=== PATIENT | female | born 1965 | race Caucasian/White ===

== ENCOUNTER 2018-09-13 14:57 | Observation (INO) | payer BC, OTHER ==
[2018-09-13 15:17] VITALS: BP 146/89; PULSE 89; TEMP 98.6; BMI 28.8
--- NOTE | 2018-09-13 15:52 | PDOC ---
History of Present Illness <Rosario Herndon - Last Filed: 09/13/18 19:26> - History of Present Illness Initial Comments: 53yo F with PMH of HTN, HLD, pre-DM, cardiac catheterization ~2010, thyroid disorder, "partial hysterectomy," recently diagnosed Purnima's syndrome presenting with pre-syncope and chest pain. Patient states she started a new medicine called Melody on Friday and has not been feeling well since Friday. She measures her blood pressure and glucose at home and noted some low levels. Yesterday, she felt sweaty, dizzy, nauseous, and like she was going to pass out and called EMS. She thought she was hypoglycemic so ate a caramel. EMS came and noted that she had a BP with systolic in the 140s and a normal blood glucose level. Patient decided not to come to the ED. Today, she had the same symptoms and decided to come to the ED. Patient does currently endorse chest pain described as a "pressure." It is nonradiating. It is palpable, but not pleuritic. Patient endorses worsening pain with exertion. She has not taken anything at home for it. She called her stenciling machine tender, Dr. Rivas, about her symptoms and was instructed to come to check her potassium levels. No hemoptysis, no recent surgical history, no recent immobilization, no hormone use , no history of DVT or PE. Follows with Dr. Florez for cardiology. Patient reports recent holter monitoring for 33 days at the end of 2018 which only elicited a "benign arrhythmia." She has had stress tests in the past, most recently about 1-2 years ago which was "normal." Denies recent travel or sick contacts. <Stefany Hooevr - Last Filed: 09/13/18 20:35> - General Chief Complaint: Lightheaded Stated Complaint: DIZZNESS, PAPALTION Time Seen by Provider: 09/13/18 15:49 Past History <Rosario Herndon - Last Filed: 09/13/18 19:26> - Past Medical History COPD: No Diabetes: Yes HTN: Yes Hypercholesterolemia: Yes - Suicide/Smoking/Psychosocial Hx Smoking History: Never smoked Hx Alcohol Use: No Drug/Substance Use Hx: No Substance Use Type: None <Stefany Hoover - Last Filed: 09/13/18 20:35> - Past Medical History Allergies/Adverse Reactions: Allergies Allergy/AdvReac Type Severity Reaction Status Date / Time linaclotide [From Linzess] AdvReac Mild Unverified 09/13/18 15:17 lubiprostone [From Amitiza] AdvReac Mild Unverified 09/13/18 15:17 Home Medications: Ambulatory Orders Amoxicillin/Potassium Clav [Augmentin 500-125 Tablet] 1 each PO BID #14 tablet 04/13/16 Review of Systems - Review of Systems Comments:: Constitutional: no fever, no chills HEENT: no throat pain, no dysphagia Cardiovascular: +chest pain, +palpitations Respiratory: no cough, +shortness of breath Gastrointestinal: +abdominal pain, +nausea Genitourinary: no dysuria, no frequency Musculoskeletal: no myalgia, no arthralgia Skin: no rash, no itching Neurologic: +headache, +weakness <So,Stefany - Last Filed: 09/13/18 20:35> *Physical Exam - Vital Signs Last Vital Signs Temp Pulse Resp BP Pulse Ox 98.6 F 89 18 146/89 99 09/13/18 15:13 09/13/18 15:13 09/13/18 15:13 09/13/18 15:13 09/13/18 15:13 <Rosario Herndon - Last Filed: 09/13/18 19:26> - Vital Signs Last Vital Signs Temp Pulse Resp BP Pulse Ox 98.6 F 89 18 146/89 99 09/13/18 15:13 09/13/18 15:13 09/13/18 15:13 09/13/18 15:13 09/13/18 15:13 - Physical Exam Comments: General: Awake, alert, and fully oriented, in no acute distress Head: No signs of trauma, bansal facies Eyes: EOMI, sclera anicteric ENT: Moist mucus membranes Neck: Normal ROM, supple, enlarged thyroid Lungs: Lungs clear, Normal breath sounds Cardio: Regular rate and rhythm, S1 and S2 present, chest wall tender to palpation Abdomen: Tender to palpation in epigastrium, Soft, nondistended. No guarding, no rebound, no masses Extremities: Normal range of motion, Distal pulses present SKIN: Warm, Dry, normal turgor Neurologic: Cranial nerves II through XII grossly intact. Normal speech <So,Stefany - Last Filed: 09/13/18 20:35> Moderate Sedation - Procedure Monitoring Vital Signs: Procedure Monitoring Vital Signs Temperature 98.6 F 09/13/18 15:13 Pulse Rate 89 09/13/18 15:13 Respiratory Rate 18 09/13/18 15:13 Blood Pressure 146/89 09/13/18 15:13 O2 Sat by Pulse Oximetry (%) 99 09/13/18 15:13 <KatrinaRosario - Last Filed: 09/13/18 19:26> - Procedure Monitoring Vital Signs: Procedure Monitoring Vital Signs Temperature 98.6 F 09/13/18 15:13 Pulse Rate 89 09/13/18 15:13 Respiratory Rate 18 09/13/18 15:13 Blood Pressure 146/89 09/13/18 15:13 O2 Sat by Pulse Oximetry (%) 99 09/13/18 15:13 <Anastacia HooverStefany - Last Filed: 09/13/18 20:35> ED Treatment Course - LABORATORY CBC & Chemistry Diagram: 09/13/18 17:11 09/13/18 17:11 - ADDITIONAL ORDERS Additional order review: Laboratory Results 09/13/18 09/13/18 09/13/18 17:11 17:11 17:11 PT with INR INR PTT (Actin FS) 27.1 Sodium Potassium Chloride Carbon Dioxide Anion Gap BUN Creatinine Creat Clearance w eGFR Random Glucose Calcium Phosphorus 3.6 Cancelled Magnesium Total Bilirubin AST ALT Alkaline Phosphatase Creatine Kinase Troponin I B-Natriuretic Peptide 33.8 Total Protein Albumin TSH 0.23 L 09/13/18 09/13/18 17:11 17:11 PT with INR 12.80 INR 1.08 PTT (Actin FS) Sodium 145 Potassium 3.7 Chloride 106 Carbon Dioxide 29 Anion Gap 10 BUN 10 Creatinine 0.7 Creat Clearance w eGFR > 60 Random Glucose 87 Calcium 9.5 Phosphorus Magnesium 2.2 Total Bilirubin 0.2 AST 18 ALT 30 Alkaline Phosphatase 130 H Creatine Kinase 116 Troponin I < 0.02 B-Natriuretic Peptide Total Protein 7.3 Albumin 4.2 TSH 09/13/18 17:11 RBC 4.62 MCV 89.7 MCHC 34.5 RDW 13.3 MPV 8.3 Neutrophils % 58.9 Lymphocytes % 29.7 D Monocytes % 9.7 Eosinophils % 1.0 Basophils % 0.7 - Medications Given in the ED: ED Medications Discontinued Medications Generic Name Dose Route Start Last Admin Trade Name Iraida PRN Reason Stop Dose Admin Acetaminophen 1,000 mg 09/13/18 16:27 09/13/18 17:30 Ofirmev Injection - IVPB 09/13/18 16:28 1,000 mg ONCE ONE Administration Famotidine/Sodium Chloride 20 mg in 50 mls @ 100 mls/hr 09/13/18 16:37 17:30 Pepcid 20 Mg Premixed Ivpb - IVPB 09/13/18 17:06 100 mls/hr ONCE ONE Administration <Rosario Herndon - Last Filed: 09/13/18 19:26> - LABORATORY CBC & Chemistry Diagram: 09/13/18 17:11 09/13/18 17:11 <Stefany Hoover - Last Filed: 09/13/18 20:35> Medical Decision Making - Medical Decision Making 53yo F with PMH of HTN, HLD, pre-DM, cardiac catheterization ~2010, thyroid disorder, "partial hysterectomy," recently diagnosed Accord's syndrome presenting with pre-syncope and chest pain. DDX including but not limited to ACS, PNA, PE, arrhythmia, electrolyte abnormality, orthostatic hypotension, GERD Cardiac and pre-syncope workup 1g Ofirmev for headache and Famotidine for epigastric pain Patient likely to be admitted for chest pain 09/13/18 16:[address] Tracy who accepted patient for admission under Dr. Mcnally 09/13/18 18:14 Dr. Herndon evaluated patient and decision was made to discharge patient as her symptoms are consistent with Korlym which she started taking recently. Patient will follow-up with Dr. Rivas. 09/13/18 20:34 <Stefany Hoover - Last Filed: 09/13/18 20:35> *DC/Admit/Observation/Transfer - Discharge Dispostion Decision to Admit order: No <Rosario Herndon - Last Filed: 09/13/18 19:26> - Discharge Dispostion Decision to Admit order: Yes <Stefany Hoover - Last Filed: 09/13/18 20:35> Diagnosis at time of Disposition: Chest pain, Hypothyroid, Side effect of medication - Discharge Dispostion Disposition: HOME Condition at time of disposition: Improved
[2018-09-13] MEDS ORDERED: ACETAMINOPHEN 1000 MG/100 ML VIAL (NON FORMULARY) IVPB ONE (16:27)
[2018-09-13] MEDS ORDERED: FAMOTIDINE 20 MG/50 ML IVPB 20 MG/50 ML MG IVPB ONE ×2 (16:37→17:02)
--- NOTE | 2018-09-13 16:58 | PDOC ---
Attending Attestation - HPI HPI: 09/13/18 16:59 The patient is a 53 year old female with a PMH of HTN, HLD, pre-diabetes, thyroid disorder, and recently diagnosed Purnima's syndrome presents to the ER with near-syncopal episode and chest pain today. Patient was recently started on Korylm and has noticed some tingling in her upper extremities since. Patient also notes dizziness, lightheadedness, diaphoresis and nausea since yesterday. Patient is complaining of chest pressure, dyspnea on exertion, and lightheadedness today prompting her to come to the ER for further evaluation. Allergies: linaclotide, lubiprostone Surgeries: None reported Social Hx: No reported alcohol, drug or cigarette use. PCP: Dr. Rivas - Physicial Exam PE: 09/13/18 17:07 ADULT EXAM GENERAL: Awake, alert, and fully oriented, in no acute distress (+) obese. LUNGS: Breath sounds equal, clear to auscultation bilaterally. No wheezes, and no crackles HEART: Regular rate and rhythm, normal S1 and S2, no murmurs, rubs or gallops ABDOMEN: Soft, normoactive bowel sounds. No guarding, no rebound. No masses. ( +) Left upper quadrant tenderness. EXTREMITIES: Normal range of motion, no edema. No clubbing or cyanosis. No cords, erythema, or tenderness NEUROLOGICAL: Cranial nerves II through XII grossly intact. Normal speech, normal gait SKIN: Warm, Dry, normal turgor, no rashes or lesions noted. <Estee Bee - Last Filed: 09/13/18 18:04> - Resident Resident Name: Stefany Hoover - ED Attending Attestation I have performed the following: I have examined & evaluated the patient, The case was reviewed & discussed with the resident, I agree w/resident's findings & plan, Exceptions are as noted - Medical Decision Making 09/13/18 16:57 A portion of this note was documented by scribe services under my direction. I have reviewed the details of the note, within reason, and agree with the documentation with the following case summary and management plan written by me. Patient treated in the ED. Nursing notes are reviewed and incorporated into the medical decision-making. Vital signs reviewed. Peripheral IV access obtained by the nurse, laboratory studies are drawn and sent, reviewed and interpreted by myself. Vital Signs Temp Pulse Resp BP Pulse Ox 98.6 F 89 18 146/89 99 09/13/18 15:13 09/13/18 15:13 09/13/18 15:13 09/13/18 15:13 09/13/18 15:13 53-year-old female with history of hypertension, hyperlipidemia, prediabetes, thyroid disorder, recently diagnosed Ashby syndrome presents with near- syncope and chest pain. The patient was initiated new medication several days ago called Melody for Ashby syndrome. Since then, the patient has been endorsing feeling generally unwell and noted yesterday that she felt very dizzy and lightheaded and diaphoretic and nauseous. The patient did not syncopized but had called EMS. At that time, patient's glucose was around 140 the patient opted not to go to the ER. Since then, the patient never felt to baseline and today, she felt similar symptoms as well as chest pressure with dyspnea on exertion and lightheadedness. The patient's symptoms may be related to her Purnima syndrome or medication. However, must also consider cardiac etiology for near-syncope and chest pain. The patient should have a troponin, chest x-ray and labs. Ultimately, the patient should be admitted to the hospital for further management. It is also possible patient may potentially of gastritis given her left upper quadrant pain but that is a diagnosis of exclusion. 09/13/18 18:02 CBC, BMP 09/13/18 17:11 09/13/18 17:11 CMP Sodium 145 mmol/L (136-145) 09/13/18 17:11 Potassium 3.7 mmol/L (3.5-5.1) 09/13/18 17:11 Chloride 106 mmol/L (98-107) 09/13/18 17:11 Carbon Dioxide 29 mmol/L (21-32) 09/13/18 17:11 Anion Gap 10 MMOL/L (8-16) 09/13/18 17:11 BUN 10 mg/dL (7-18) 09/13/18 17:11 Creatinine 0.7 mg/dL (0.55-1.3) 09/13/18 17:11 Creat Clearance w eGFR > 60 (>60) 09/13/18 17:11 Random Glucose 87 mg/dL (74-106) 09/13/18 17:11 Calcium 9.5 mg/dL (8.5-10.1) 09/13/18 17:11 Phosphorus 3.6 mg/dL (2.5-4.9) 09/13/18 17:11 Magnesium 2.2 mg/dL (1.8-2.4) 09/13/18 17:11 Total Bilirubin 0.2 mg/dL (0.2-1) 09/13/18 17:11 AST 18 U/L (15-37) 09/13/18 17:11 ALT 30 U/L (13-61) 09/13/18 17:11 Alkaline Phosphatase 130 U/L (45-117) H 09/13/18 17:11 Creatine Kinase 116 U/L (26-192) 09/13/18 17:11 Troponin I < 0.02 ng/ml (0.00-0.05) 09/13/18 17:11 B-Natriuretic Peptide 33.8 pg/ml (5-125) 09/13/18 17:11 Total Protein 7.3 g/dl (6.4-8.2) 09/13/18 17:11 Albumin 4.2 g/dl (3.4-5.0) 09/13/18 17:11 TSH 0.23 uIU/ml (0.358-3.74) L 09/13/18 17:11 09/13/18 18:[address] Florez as her contour sander. Will place consultation in. Admit. <Eric Sosa - Last Filed: 09/13/18 18:13> Heart Score/ECG Review #1 ECG reviewed & interpreted by me at: 15:05 09/13/18 18:02 NSR 71, no std/herb, LVH, normal axis, normal intervals, QTC 404 msec <Eric Sosa - Last Filed: 09/13/18 18:13>
[2018-09-13] MEDS ORDERED: ACETAMINOPHEN INJECTION 100 ML IVPB ONE (17:02)
[2018-09-13 17:18] LABS: BASO % 0.7 % (0-2.0); HEMATOCRIT 41.5 % (32.4-45.2); HEMOGLOBIN 14.3 GM/dL (10.7-15.3); LYMPH % 29.7 % (8-40); MCH 30.9 pg (25.7-33.7); MCHC 34.5 g/dl (32.0-36.0); MEAN CELL VOLUME 89.7 fl (80-96); MEAN PLT VOLUME 8.3 fl (7.5-11.1); MONO % 9.7 % (3.8-10.2); NEUT % 58.9 % (42.8-82.8); PLATELET COUNT 334 K/MM3 (134-434); RBC 4.62 M/mm3 (3.60-5.2); RDW 13.3 % (11.6-15.6); WHITE BLOOD COUNT 9.6 K/mm3 (4.0-10.0)
[2018-09-13 17:34] LABS: INR 1.08 (0.83-1.09); PROTHROMBIN TIME (PATIENT) 12.8 SEC (9.7-13.0)
[2018-09-13 17:56] LABS: ALBUMIN 4.2 g/dl (3.4-5.0); ALK PHOS 130 U/L (45-117); ANION GAP 10 MMOL/L (8-16); BILIRUBIN,TOTAL 0.2 mg/dL (0.2-1); BLOOD UREA NITROGEN 10 mg/dL (7-18); CALCIUM 9.5 mg/dL (8.5-10.1); CHLORIDE 106 mmol/L (98-107); CO2 29 mmol/L (21-32); CREATININE 0.7 mg/dL (0.55-1.3); GLUCOSE,RANDOM 87 mg/dL (74-106); MAGNESIUM 2.2 mg/dL (1.8-2.4); POTASSIUM 3.7 mmol/L (3.5-5.1); SGOT/AST 18 U/L (15-37); SGPT/ALT 30 U/L (13-61); SODIUM 145 mmol/L (136-145); TOT PROT 7.3 g/dl (6.4-8.2)
[2018-09-13 18:00] LABS: N-TERMINAL BNP 33.8 pg/ml (5-125); PHOSPHOROUS 3.6 mg/dL (2.5-4.9)
[2018-09-13] MEDS ORDERED: POTASSIUM CHLORIDE TABS 20 MEQ TABLET.ER (FP) PO ONE ×2 (19:26→19:39)
--- NOTE | 2018-09-13 19:33 | PDOC ---
*Physical Exam - Vital Signs Last Vital Signs Temp Pulse Resp BP Pulse Ox 98.6 F 89 18 146/89 99 09/13/18 15:13 09/13/18 15:13 09/13/18 15:13 09/13/18 15:13 09/13/18 15:13 ED Treatment Course - LABORATORY CBC & Chemistry Diagram: 09/13/18 17:11 09/13/18 17:11 - ADDITIONAL ORDERS Additional order review: Laboratory Results 09/13/18 09/13/18 09/13/18 17:11 17:11 17:11 PT with INR INR PTT (Actin FS) 27.1 Sodium Potassium Chloride Carbon Dioxide Anion Gap BUN Creatinine Creat Clearance w eGFR Random Glucose Calcium Phosphorus 3.6 Cancelled Magnesium Total Bilirubin AST ALT Alkaline Phosphatase Creatine Kinase Troponin I B-Natriuretic Peptide 33.8 Total Protein Albumin TSH 0.23 L 09/13/18 09/13/18 17:11 17:11 PT with INR 12.80 INR 1.08 PTT (Actin FS) Sodium 145 Potassium 3.7 Chloride 106 Carbon Dioxide 29 Anion Gap 10 BUN 10 Creatinine 0.7 Creat Clearance w eGFR > 60 Random Glucose 87 Calcium 9.5 Phosphorus Magnesium 2.2 Total Bilirubin 0.2 AST 18 ALT 30 Alkaline Phosphatase 130 H Creatine Kinase 116 Troponin I < 0.02 B-Natriuretic Peptide Total Protein 7.3 Albumin 4.2 TSH 09/13/18 17:11 RBC 4.62 MCV 89.7 MCHC 34.5 RDW 13.3 MPV 8.3 Neutrophils % 58.9 Lymphocytes % 29.7 D Monocytes % 9.7 Eosinophils % 1.0 Basophils % 0.7 - Medications Given in the ED: ED Medications Discontinued Medications Generic Name Dose Route Start Last Admin Trade Name Iraida PRN Reason Stop Dose Admin Acetaminophen 1,000 mg 09/13/18 16:27 09/13/18 17:30 Ofirmev Injection - IVPB 09/13/18 16:28 1,000 mg ONCE ONE Administration Famotidine/Sodium Chloride 20 mg in 50 mls @ 100 mls/hr 09/13/18 16:37 17:30 Pepcid 20 Mg Premixed Ivpb - IVPB 09/13/18 17:06 100 mls/hr ONCE ONE Administration Medical Decision Making - Medical Decision Making 09/13/18 19:28 I received pt on signout. She states that she recenly began a new medication for kingston's; korlym (mifepristone) on Friday night. She began to feel ill Friday; on she had a dizzy spell at the eyeglass shop. EMS was called and all vitals were normal, so she didn't come to the ER. Friday she had some left arm tingling and she had crampy epigasric pain. Today she felt unwell also. Pt came today because her fitting room maintenance mechanic Dr. Rivas wanted her checked out, particularly her K+. Pt's K_ is WNL, slighly low. She will be given a dose of K+ orally here. Pt feels great now, and all labs are normal. Her TSH is low. I asked her to skip a dose of her synthroid tonight. Pt will be discharged home and she will follow with her PMD/fitting room maintenance mechanic, who recommended that she halve the dose of her korlym. Side effects of korlym are: Common side effects of Korlym include: nausea. stomach pain. fatigue. headache. joint pain. vomiting. swelling of the extremities. dizziness. *DC/Admit/Observation/Transfer Diagnosis at time of Disposition: Chest pain, Hypothyroid, Side effect of medication - Discharge Dispostion Disposition: HOME Condition at time of disposition: Improved - Referrals Referrals: Prince Gonzalez MD [Primary Care Provider] - - Patient Instructions - Post Discharge Activity
--- NOTE | 2018-09-13 19:57 | HP ---
CHIEF COMPLAINT: chest pain, near syncope PCP: [facility] HISTORY OF PRESENT ILLNESS: 53yo F presenting with pre-syncope and chest pain. Patient states she started a new medicine called Melody on Friday and has not been feeling well since Friday. Yesterday, she felt sweaty, dizzy, nauseous, and like she was going to pass out. ER course was notable for: (1) cxr (2) tylenol (3) Recent Travel: no PAST MEDICAL HISTORY: HTN, HLD, pre-DM, thyroid disorder, recently diagnosed [place]'s syndrome PAST SURGICAL HISTORY: partial hysterectomy, cardiac catheterization Social History: Smoking: Alcohol: Drugs: Family History: Allergies linaclotide [From Linzess] Adverse Reaction (Mild, Unverified 09/13/18 15:17) diarrhea lubiprostone [From Amitiza] Adverse Reaction (Mild, Unverified 09/13/18 15:17) cramps HOME MEDICATIONS: Home Medications Medication Instructions Recorded Amoxicillin/Potassium Clav 1 each PO BID #14 tablet 04/13/16 [Augmentin 500-125 Tablet] REVIEW OF SYSTEMS CONSTITUTIONAL: Absent: fever, chills, diaphoresis, generalized weakness, malaise, loss of appetite, weight change HEENT: Absent: rhinorrhea, nasal congestion, throat pain, throat swelling, difficulty swallowing, mouth swelling, ear pain, eye pain, visual changes CARDIOVASCULAR: Absent: chest pain, syncope, palpitations, irregular heart rate, peripheral edema present- lightheadedness RESPIRATORY: Absent: cough, shortness of breath, dyspnea with exertion, orthopnea, wheezing, stridor, hemoptysis GASTROINTESTINAL: Absent: abdominal pain, abdominal distension, vomiting, diarrhea, constipation, melena, hematochezia present- nausea GENITOURINARY: Absent: dysuria, frequency, urgency, hesitancy, hematuria, flank pain, genital pain MUSCULOSKELETAL: Absent: myalgia, arthralgia, joint swelling, back pain, neck pain SKIN: Absent: rash, itching, pallor HEMATOLOGIC/IMMUNOLOGIC: Absent: easy bleeding, easy bruising, lymphadenopathy, frequent infections ENDOCRINE: Absent: unexplained weight gain, unexplained weight loss, heat intolerance, cold intolerance NEUROLOGIC: Absent: headache, focal weakness or paresthesias, dizziness, unsteady gait, seizure, mental status changes, bladder or bowel incontinence PSYCHIATRIC: Absent: anxiety, depression, suicidal or homicidal ideation, hallucinations. PHYSICAL EXAMINATION Vital Signs - 24 hr 09/13/18 15:13 Temperature 98.6 F Pulse Rate 89 Respiratory 18 Rate Blood Pressure 146/89 O2 Sat by Pulse 99 Oximetry (%) GENERAL: Awake, alert, and fully oriented, in no acute distress. HEAD: Normal with no signs of trauma. EYES: Pupils equal, round and reactive to light, extraocular movements intact, sclera anicteric, conjunctiva clear. No lid lag. EARS, NOSE, THROAT: Ears normal, nares patent, oropharynx clear without exudates. Moist mucous membranes. NECK: Normal range of motion, supple without lymphadenopathy, JVD, or masses. LUNGS: Breath sounds equal, clear to auscultation bilaterally. No wheezes, and no crackles. No accessory muscle use. HEART: Regular rate and rhythm, normal S1 and S2 without murmur, rub or gallop. ABDOMEN: Soft, nontender, not distended, normoactive bowel sounds, no guarding, no rebound, no masses. No hepatomegaly or splenomegaly. MUSCULOSKELETAL: Normal range of motion at all joints. No bony deformities or tenderness. No CVA tenderness. UPPER EXTREMITIES: 2+ pulses, warm, well-perfused. No cyanosis. No clubbing. No peripheral edema. LOWER EXTREMITIES: 2+ pulses, warm, well-perfused. No calf tenderness. No peripheral edema. NEUROLOGICAL: Cranial nerves II-XII intact. Normal speech. Normal gait. PSYCHIATRIC: Cooperative. Good eye contact. Appropriate mood and affect. SKIN: Warm, dry, normal turgor, no rashes or lesions noted, normal capillary refill. Laboratory Results - last 24 hr 09/13/18 09/13/18 09/13/18 17:11 17:11 17:11 WBC 9.6 RBC 4.62 Hgb 14.3 Hct 41.5 MCV 89.7 MCH 30.9 MCHC 34.5 RDW 13.3 Plt Count 334 MPV 8.3 Absolute Neuts (auto) 5.6 Neutrophils % 58.9 Lymphocytes % 29.7 D Monocytes % 9.7 Eosinophils % 1.0 Basophils % 0.7 Nucleated RBC % 0 PT with INR 12.80 INR 1.08 PTT (Actin FS) Sodium 145 Potassium 3.7 Chloride 106 Carbon Dioxide 29 Anion Gap 10 BUN 10 Creatinine 0.7 Creat Clearance w eGFR > 60 Random Glucose 87 Calcium 9.5 Phosphorus Magnesium 2.2 Total Bilirubin 0.2 AST 18 ALT 30 Alkaline Phosphatase 130 H Creatine Kinase 116 Troponin I < 0.02 B-Natriuretic Peptide Total Protein 7.3 Albumin 4.2 TSH 09/13/18 09/13/18 09/13/18 17:11 17:11 17:11 WBC RBC Hgb Hct MCV MCH MCHC RDW Plt Count MPV Absolute Neuts (auto) Neutrophils % Lymphocytes % Monocytes % Eosinophils % Basophils % Nucleated RBC % PT with INR INR PTT (Actin FS) 27.1 Sodium Potassium Chloride Carbon Dioxide Anion Gap BUN Creatinine Creat Clearance w eGFR Random Glucose Calcium Phosphorus Cancelled 3.6 Magnesium Total Bilirubin AST ALT Alkaline Phosphatase Creatine Kinase Troponin I B-Natriuretic Peptide 33.8 Total Protein Albumin TSH 0.23 L imaging reviewed ASSESSMENT/PLAN: #Presyncope #Chest pain- r/o ACS
[2018-09-13] MEDS ORDERED: SODIUM CHLORIDE 1,000 ML IV SCH (20:00)
[2018-09-13] MEDS ORDERED: HEPARIN NA (PORCINE) 5,000 UNITS/ML 1ML VIAL SQ SCH (22:00)
--- NOTE | 2018-09-14 09:43 | EKG ---
Test Reason : Blood Pressure : / mmHG Vent. Rate : 071 BPM Atrial Rate : 071 BPM P-R Int : 132 ms QRS Dur : 084 ms QT Int : 372 ms P-R-T Axes : 028 021 030 degrees QTc Int : 404 ms NORMAL SINUS RHYTHM WITH SINUS ARRHYTHMIA MINIMAL VOLTAGE CRITERIA FOR LVH, MAY BE NORMAL VARIANT BORDERLINE ECG WHEN COMPARED WITH ECG OF 13-APR-2016 12:05, T WAVE VARIATION Confirmed by SHELIA VILLAFANA, TEA ([id number]) on 09/14/2018 9:43:19 AM Referred By: Confirmed By:TEA BASS MD
== END 2018-09-13 18:42 | disposition home or self-care (01) ==
LOC: JER 14:57 → JERBED 18:16 → UNDOADMOB 19:38 → JERBED 19:38
PROVIDERS: ADMIT Family Medicine; ATTEND Family Medicine
PROC: 3E033GC Introduction of Other Therapeutic Substance into Peripheral Vein, Percutaneous Approach (ICD-10-PCS; principal; 2018-09-13)
PROC: 3E0337Z Introduction of Electrolytic and Water Balance Substance into Peripheral Vein, Percutaneous Approach (ICD-10-PCS; 2018-09-13)
DX: R07.9 Chest pain, unspecified (principal); E03.9 Hypothyroidism, unspecified; T50.905A Adverse effect of unspecified drugs, medicaments and biological substances, initial encounter; I10 Essential (primary) hypertension; E78.5 Hyperlipidemia, unspecified; R73.03 Prediabetes; E24.9 Cushing's syndrome, unspecified; Y92.9 Unspecified place or not applicable
CPT/HCPCS: 36415; 71045-TC-FY; 80053; 82550; 83735; 83880; 84100; 84443; 84484; 85025; 85610; 85730; 93005; 93010; 99283-25; G0378; J0131

== ENCOUNTER 2020-01-16 16:45 | Emergency (ER) | payer BC, OTHER ==
[2020-01-16 16:58] VITALS: BP 139/87; TEMP 98.6; BMI 29.6
--- NOTE | 2020-01-16 17:03 | PDOC ---
History of Present Illness - General Chief Complaint: Chest Pain Stated Complaint: CHEST PAIN Time Seen by Provider: 01/16/20 16:57 Past History - Medical History Allergies/Adverse Reactions: Allergies Allergy/AdvReac Type Severity Reaction Status Date / Time linaclotide [From Linzess] Allergy Mild Unverified 01/16/20 17:27 lubiprostone [From Amitiza] Allergy Mild Unverified 01/16/20 17:27 lactose Allergy Swelling Verified 01/16/20 17:54 metformin Allergy Swelling Verified 01/16/20 17:54 peanut Allergy Swelling Verified 01/16/20 17:54 aspirin AdvReac Mild Nausea Verified 01/16/20 17:54 Home Medications: Ambulatory Orders Amlodipine Besylate 2.5 mg PO DAILY 01/16/20 Famotidine [Pepcid -] 40 mg PO DAILY 01/16/20 Linaclotide [Linzess] 145 mcg PO DAILY 01/16/20 Metoprolol Tartrate [Lopressor -] 25 mg PO BID 01/16/20 Mifepristone [Korlym] 600 mg PO DAILY 01/16/20 Nortriptyline HCl [Pamelor -] 10 mg PO HS 01/16/20 Potassium Gluconate [Potassium] 0 mg PO DAILY 01/16/20 Rosuvastatin [Crestor -] 40 mg PO DAILY 01/16/20 COPD: No Diabetes: Yes HTN: Yes Hypercholesterolemia: Yes Psychiatric Problems: Yes (panic attacks) - Psycho-Social/Smoking History Smoking History: Never smoked Have you smoked in the past 12 months: No Information on smoking cessation initiated: No - Substance Abuse Hx (Audit-C & DAST Scrn) How often the patient has a drink containing alcohol: Never Score: In Men: 4 or > Positive; In Women: 3 or > Positive: 0 Screen Result (Pos requires Nsg. Audit-10AR): Negative In the last yr the pt used illegal drug/Rx for NonMed reason: No Score: Yes response is considered Positive: 0 Screen Result (Positive result requires Nsg. DAST-10): Negative *Physical Exam - Vital Signs Last Vital Signs Temp Pulse Resp BP Pulse Ox 98.6 F 93 H 18 139/87 100 01/16/20 16:57 01/16/20 16:57 01/16/20 16:57 01/16/20 16:57 01/16/20 16:57 Heart Score/ECG Review - History History: Moderately suspicious - Electrocardiogram EKG: Non specific repolarization disturbance - Age Age: 45-65 - Risk Factors Risk Factors Heart Score: Yes Hx Hypercholesterolemia, Yes Hx Hypertension, Yes Hx Obesity Based on the list above the patient has:: >/=3 risk factors or Hx atherosclerotic disease - Troponin Troponin: </= normal limit - Score Heart Score - Total: 5 ED Treatment Course - LABORATORY CBC & Chemistry Diagram: 01/16/20 17:30 01/16/20 17:30 - RADIOLOGY Radiology Studies Ordered: Category Date Time Status CHEST X-RAY PORTABLE* [RAD] Stat Radiology 01/16/20 16:57 Ordered Medical Decision Making - Medical Decision Making 01/16/20 17:01 HPI: 54yo F with PMH of HTN, HLD, pre-DM, cardiac catheterization ~2010, thyroid disorder, "partial hysterectomy," GERD/gastritis, 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 Endorses chronic unchanged epigastric pain due to gastritis. Endorses increased stress recently. Hx similar sx diagnosed as anxiety. Pt states she has had multiple workups including echos and Holter tests by Gautam who has told her her heart is fine, and she got a full workup including nuclear stress test and MRI with contrast in August and September respectively this year at [place] which was all negative. Pt in [facility] prior. Denies recent illness, covid or sick contacts, URI-like sx, hx DVT/PE, malignnacy, recent surgery or travel or immobilization, trauma, hemoptysis. Echo 07/22/19: LV size, thickness, and function normal. RV normal size and function. Trace tricuspid regurgitation. Cardio - [facility] - [facility] PCP - Prince Gonzalez ROS: Constitutional: Positive for diaphoresis. Negative for chills, fever, fatigue. HENT: Negative for sore throat, rhinorrhea, congestion. Eyes: Negative for visual disturbance. Respiratory: Negative for shortness of breath, cough, and wheezing. Cardiovascular: Positive for chest pain. Negative for palpitations, and leg swelling. Gastrointestinal: Positive for epigastric pain, nausea. Negative for blood in stool, constipation, diarrhea, and vomiting. Genitourinary: Negative for dysuria, flank pain, and hematuria. Musculoskeletal: Negative for myalgias, back pain, and neck pain. Skin: Negative for rash. Neurological: Positive for light-headedness. Negative for vertigo, syncope, weakness, numbness and headaches. Psychiatric/Behavioral: Positive for anxiety and stress. Negative for confusion. PE: Gen: Alert, NAD, anxious-appearing. HEENT: PERRL, EOMI, MMM, NCAT. No conjunctival pallor. Sclera are non-icteric. CV: Tachycardic rate and regular rhythm. No murmurs, rubs, or gallops. PULM: No resp distress. CTAB, no wheezes, rales, or rhonchi. ABD: soft, ND, mild epigastric TTP, no rebound tenderness or guarding, no CVA tenderness. BACK: No TTP of c/t/l-spine. No step-offs or deformities. MSK: No bony deformities. 2+ pulses in all extremities. NEURO: AAOx3. PERRL. CN 2-12 intact. 5/5 strength in all extremities. Sensation to light touch intact in all extremities. No abnormal nystagmus. EXTREMITIES: No cyanosis. No clubbing. No edema. No calf tenderness. PSYCH: Anxious mood and normal thought pattern. SKIN: Warm and dry. Normal capillary refill. No rashes. No jaundice. 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 Hemodynamically stable, afebrile, neurologically intact. Ddx: anxiety/panic attack, ACS/IL (HEART score 5), arrhythmia, thyroid pathology, gastritis/GERD, pancreatitis, PNA, infection, metabolic derangement, anemia -Aspirin -Pain management -EKG -CXR -CBC,CMP,Mg,Phos,Cardiac profile,Coags,TSH,Lipase,preg -Dispo: likely admit tele obs ACS. Pt states she does not want to be admitted. Will wait for labs and consult Dr Florez. 01/16/20 18:06 Labs reviewed. Notable for neg trop and phos 2.3 -Replete phos EKG reviewed: normal sinus rhythm, 84bpm, normal axis, normal intervals, no TWIs, no ST elevations or depressions. Compared to 09/13/18, arrhythmia no longer present and TWI in V1 is now upright. CXR reviewed: No acute pathology 01/16/20 18:[address] Folrez. 01/16/20 18:[address] Hess director of home economics for Dr Florez and discussed case - due to negative stress test this year (2019) and multiple negative for workups for same sx, if 2 trops neg, could safely d/c home and call Gautam tomorrow AM for f/u. Pt is going to Dr Florez's office at 1130 tomorrow for an appt for pt's mother, and she will make an appointment for herself as well. Pt feels better now, asymptomatic. Pt is happy with plan. -2nd trop at 202901/16/20 21:25 2nd trop negative. Pt remains asymptomatic. Safe for d/c. Will discharge home with tomorrow cardio f/u. Return precautions given. Pt understands all discharge instructions and all questions were answered. Discharge - Discharge Information Problems reviewed: Yes Clinical Impression/Diagnosis: Chest pain Condition: Improved Disposition: HOME - Admission No - Follow up/Referral Referrals: Prince Gonzalez MD [Primary Care Provider] - - Patient Discharge Instructions Patient Printed Discharge Instructions: DI for Chest Pain Additional Instructions: You have been seen in the Emergency Department for your chest pain. Your EKG, chest X-ray, and labs, including Troponin (a heart enzyme), show no signs concerning for an emergent condition such as a heart attack or pneumonia. Due to your risk factors for cardiac disease, you will need close follow-up with your first aid officer Dr Florez. Call his office in the morning before you got to his office at 1130am for your mother's appointment, and make an appointment for yourself as well for tomorrow. If you experience pain, you can take Tylenol or Ibuprofen as directed on the medication bottle, but do not exceed 3g of Ibuprofen or 4g of Tylenol a day. Also follow-up with your primary care doctor within 1 week. Return to the Emergency Department immediately if you experience chest pain, difficulty breathing, passing out, or any other new or worsening symptom. - Post Discharge Activity
[2020-01-16] MEDS ORDERED: ASPIRIN 81 MG CHEWABLE TABLETS PO ONE (17:24)
[2020-01-16] MEDS ORDERED: ACETAMINOPHEN 1000 MG/100 ML VIAL (NON FORMULARY) IVPB ONE (17:24)
[2020-01-16] MEDS ORDERED: FAMOTIDINE 20 MG/50 ML IVPB 20 MG/50 ML MG IVPB ONE (17:24)
[2020-01-16] MEDS ORDERED: FAMOTIDINE 20 MG TABLET PO ONE (17:34)
[2020-01-16] MEDS ORDERED: ACETAMINOPHEN 500 MG TABLET (FP) PO ONE (17:34)
[2020-01-16] MEDS ORDERED: MAG HYDROX/AL HYDROX/SIMETH 30 ML UNIT-DOSE CUP PO ONE (17:34)
[2020-01-16 17:37] LABS: BASO % 0.7 % (0-2.0); EOS % 1.4 % (0-4.5); HEMATOCRIT 46.9 % (32.4-45.2); HEMOGLOBIN 15.6 GM/dL (10.7-15.3); LYMPH % 28.8 % (8-40); MCH 30.4 pg (25.7-33.7); MCHC 33.2 g/dl (32.0-36.0); MEAN CELL VOLUME 91.5 fl (80-96); MEAN PLT VOLUME 8.2 fl (7.5-11.1); MONO % 13.4 % (3.8-10.2); NEUT % 55.7 % (42.8-82.8); PLATELET COUNT 372 K/MM3 (134-434); RBC 5.13 M/mm3 (3.60-5.2); RDW 12.9 % (11.6-15.6); WHITE BLOOD COUNT 8.3 K/mm3 (4.0-10.0)
[2020-01-16 17:45] LABS: INR 1.03 (0.83-1.09); PROTHROMBIN TIME (PATIENT) 12.2 SEC (9.7-13.0)
[2020-01-16 17:47] LABS: ACTIVATED PTT 27.3 SECONDS (25.2-36.5)
[2020-01-16] MEDS ORDERED: ACETAMINOPHEN 325 MG TABLET (FP) ONE (17:57)
[2020-01-16] MEDS ORDERED: FAMOTIDINE 20 MG TABLET ONE (17:57)
[2020-01-16] MEDS ORDERED: ASPIRIN 81 MG CHEWABLE TABLETS ONE (17:57)
[2020-01-16] MEDS ORDERED: MAG HYDROX/AL HYDROX/SIMETH 30 ML UNIT-DOSE CUP ONE (17:58)
[2020-01-16 18:05] VITALS: PULSE 97
[2020-01-16 18:11] LABS: ALBUMIN 4.2 g/dl (3.4-5.0); ALK PHOS 97 U/L (45-117); ANION GAP 9 MMOL/L (8-16); BILIRUBIN,TOTAL 0.2 mg/dL (0.2-1); BLOOD UREA NITROGEN 14.8 mg/dL (7-18); CHLORIDE 108 mmol/L (98-107); CO2 26 mmol/L (21-32); CREATININE 0.9 mg/dL (0.55-1.3); GLUCOSE,RANDOM 127 mg/dL (74-106); LIPASE 168 U/L (73-393); MAGNESIUM 2.4 mg/dL (1.8-2.4); PHOSPHOROUS 2.3 mg/dL (2.5-4.9); POTASSIUM 4.1 mmol/L (3.5-5.1); SGOT/AST 23 U/L (15-37); SGPT/ALT 37 U/L (13-61); SODIUM 144 mmol/L (136-145); TOT PROT 7.5 g/dl (6.4-8.2)
[2020-01-16] MEDS ORDERED: NAPH,MB-DB/K PH,MBDB POWDER PACKET PO ONE (18:16)
[2020-01-16] MEDS ORDERED: NAPH,MB-DB/K PH,MBDB POWDER PACKET ONE (18:23)
--- NOTE | 2020-01-16 19:03 | PDOC ---
Documentation entered by Belia Persaud SCRIBE, acting as scribe for Ramiro Calderón MD. Ramiro Calderón MD: This documentation has been prepared by the uriahibe, Belia Persaud SCRIBE, under my direction and personally reviewed by me in its entirety. I confirm that the documentation accurately reflects all work, treatment, procedures, and medical decision making performed by me. Attending Attestation - Resident Resident Name: Stefany Purcell - ED Attending Attestation I have performed the following: I have examined & evaluated the patient, The case was reviewed & discussed with the resident, I agree w/resident's findings & plan, Exceptions are as noted - HPI HPI: 01/16/20 17:37 The patient is a 53-year-old female with a past medical history significant for HTN, HLD, Pre-DM, s/p cardiac catheterization (2010), Kulpmont's syndrome and GERD who presents to the emergency department via EMS from home for 2 hours of sudden onset left-sided chest pain radiating across the chest wall. The patient reports the pain started at rest and is constant and unchanged in nature associated with diaphoresis, lightheadedness and nausea. The patient reports increased stress recently. Denies a history of DVTs. The patient reports having an unremarkable stress test, MRI, and Holter monitoring at [facility]. The patient reports she was told in the past these symptoms are associated with panic attacks and anxiety. Allergies: linaclotide, lubiprostone, lactose, metformin, peanut, ASA. Surgical history: Partial hysterectomy, Cardiac catheterization, Ovarian cyst removal, hernia repair, arthroscopic surgery, . Social Hx: No reported alcohol, drug, or cigarette use. PCP: Dr. Yulia Gonzalez. Auto Body Mechanic: Dr. Florez. - Physicial Exam PE: 01/16/20 17:39 GENERAL: Awake, alert, and fully oriented, in no acute distress. HEAD: No signs of trauma EYES: PERRLA, EOMI, sclera anicteric, conjunctiva clear ENT: Auricles normal inspection, hearing grossly normal, nares patent, oropharynx clear without exudates. Moist mucosa NECK: Nontender, no stepoffs, Normal ROM, supple, no lymphadenopathy, JVD, or masses LUNGS: Breath sounds equal, clear to auscultation bilaterally. No wheezes, and no crackles HEART: Regular rate and rhythm, normal S1 and S2, no murmurs, rubs or gallops ABDOMEN: Soft, nontender, normoactive bowel sounds. No guarding, no rebound. No masses EXTREMITIES: Normal range of motion, no edema. No clubbing or cyanosis. No cords, erythema, or tenderness NEUROLOGICAL: Cranial nerves II through XII intact. 5/5 strength and sensation in all extremities, Normal speech, normal gait, normal cerebellar function SKIN: Warm, Dry, normal turgor, no rashes or lesions noted. - Medical Decision Making 01/16/20 18:16 54 F with atypical chest pain. Will r/o ACS given medical history. However ,EKG with no ischemic changes. - Labs, tropx2 - CXR - Case discussed with Dr. Hess. 01/16/20 21:36 Labs wnl Trop negative x2 CXR clear Per Dr. Hess, pt can f/u as outpt. Has scheduld appt with Dr. Florez tomorrow. Pt is well appearing, with normal vitals. Clinically stable for DC at this time. I discussed the physical exam findings, ancillary test results and final diagnoses with the patient. I answered all of the patient's questions. The patient was satisfied with the care received and felt comfortable with the discharge plan and treatment plan. The patient agrees to follow up with the primary care physician within 24-72 hours. Please note this patient was evaluated during the COVID-19 crisis with the presidential Navarro Act Declaration and the [place] governny executive order number 202. He/she was evaluated and clinical decisions were made relative to healthcare system resources as well as clinical picture during a pandemic crisis situation. Discharge - Discharge Information Problems reviewed: Yes Clinical Impression/Diagnosis: Chest pain Condition: Improved Disposition: HOME - Follow up/Referral Referrals: Prince Gonzalez MD [Primary Care Provider] - - Patient Discharge Instructions Patient Printed Discharge Instructions: DI for Chest Pain Additional Instructions: You have been seen in the Emergency Department for your chest pain. Your EKG, chest X-ray, and labs, including Troponin (a heart enzyme), show no signs concerning for an emergent condition such as a heart attack or pneumonia. Due to your risk factors for cardiac disease, you will need close follow-up with your operations research analyst Dr Florez. Call his office in the morning before you got to his office at 1130am for your mother's appointment, and make an appointment for yourself as well for tomorrow. If you experience pain, you can take Tylenol or Ibuprofen as directed on the medication bottle, but do not exceed 3g of Ibuprofen or 4g of Tylenol a day. Also follow-up with your primary care doctor within 1 week. Return to the Emergency Department immediately if you experience chest pain, difficulty breathing, passing out, or any other new or worsening symptom. - Post Discharge Activity
--- NOTE | 2020-01-17 09:20 | EKG ---
Test Reason : Blood Pressure : / mmHG Vent. Rate : 084 BPM Atrial Rate : 084 BPM P-R Int : 136 ms QRS Dur : 074 ms QT Int : 344 ms P-R-T Axes : 048 035 051 degrees QTc Int : 406 ms NORMAL SINUS RHYTHM Nonspecific T changes Abnormal ECG WHEN COMPARED WITH ECG OF 13-SEP-2018 15:03, No significant changes Confirmed by MEHRAN GALLARDO MD ([id number]) on 01/17/2020 9:20:17 AM Referred By: Confirmed By:MEHRAN GALLARDO MD
== END 2020-01-16 21:45 | disposition home or self-care (01) ==
LOC: JER 16:45
DX: R07.9 Chest pain, unspecified (principal)
CPT/HCPCS: 36415; 71045-TC-FY; 80053; 82550; 83690; 83735; 84100; 84443; 84484; 84703; 85025; 85610; 85730; 93005; 93010; 99285-25

== ENCOUNTER → 2023-09-15 | Day surgery (SDC) | payer BC, OTHER | END | disposition home or self-care (01) | LOC: FMAMMOTONE 10:36 | PROVIDERS: ATTEND Surgery | PROC: 0HBT3ZX Excision of Right Breast, Percutaneous Approach, Diagnostic (ICD-10-PCS; principal; 2023-09-15) | DX: N60.11 Diffuse cystic mastopathy of right breast (principal); N64.89 Other specified disorders of breast; R92.8 Other abnormal and inconclusive findings on diagnostic imaging of breast | CPT/HCPCS: 19081; 76098-TC-FY; 87899; 88305-TC; A4648 ==